=== PATIENT | female | born 1970 | race Caucasian/White ===

== ENCOUNTER 2018-05-22 05:23 | Day surgery (SDC) | payer OTHER ==
[~2018-05-22] VITALS: Ht 175.3 cm; Wt 99.7 kg
[~2018-05-22 05:23] MED LIST: LACT1CAP35 PO; LOSA25TA5 PO; MAGNESIUM PO; MULT-516 PO; VITAMIN D3 PO
[2018-05-22] MEDS ORDERED: LACTATED RINGERS 1,000 ML IV SCH (06:17)
[2018-05-22 06:21] VITALS: BP 139/87
[2018-05-22] MEDS ORDERED: FENTANYL PF 100 MCG/2ML ONE (06:58)
[2018-05-22] MEDS ORDERED: DEXAMETHASONE 4 MG/ML, 1ML ONE ×2 (07:00)
[2018-05-22] MEDS ORDERED: ONDANSETRON 2MG/ML, 2ML ONE (07:00)
[2018-05-22] MEDS ORDERED: PROPOFOL 10 MG/ML, 20ML ONE (07:01)
[2018-05-22] MEDS ORDERED: ROCURONIUM 10MG/ML,5ML ONE (07:02)
[2018-05-22] MEDS ORDERED: SCOPOLAMINE PATCH, 1.5MG PATCH.TD72 TD ONE ×2 (07:19→08:30)
[2018-05-22] MEDS ORDERED: SUCCINYLCHOLINE 20 MG/ML, 10ML ONE (07:31)
[2018-05-22] MEDS ORDERED: PROMETHAZINE 25 MG/ML, 1ML ONE (08:18)
[2018-05-22] MEDS ORDERED: INDOMETHACIN 50 MG SUPP.RECT ONE (08:19)
[2018-05-22] MEDS ORDERED: OMNIPAQUE 350 MG/ML, 50 ML BOTTLE ONE (08:27)
[2018-05-22] MEDS ORDERED: HYDROmorphone 2 MG/ML, 1ML ONE (08:41)
[2018-05-22] MEDS ORDERED: INDOMETHACIN 50 MG SUPP.RECT PR ONE (09:00)
[2018-05-22] MEDS ORDERED: HYDROmorphone 1 MG/ML, 1ML IV PRN (09:00)
[2018-05-22] MEDS ORDERED: PROMETHAZINE 25 MG/ML, 1ML IV PRN (09:00)
== END 2018-05-22 11:35 | disposition home or self-care (01) ==
LOC: OUT 05:23
PROVIDERS: ATTEND Internal Medicine Gastroenterology
DX: K80.50 Calculus of bile duct without cholangitis or cholecystitis without obstruction (principal); Z90.49 Acquired absence of other specified parts of digestive tract; I10 Essential (primary) hypertension; Z87.09 Personal history of other diseases of the respiratory system; Z88.8 Allergy status to other drugs, medicaments and biological substances
CPT/HCPCS: 43262; 43264; 74328; C1769; J0330; J1100; J1170; J2405; J2550; J2704; J3010; J7120; Q9967